=== PATIENT | male | born 1990 | race Caucasian/White ===

== ENCOUNTER 2017-11-19 05:38 | Emergency (ER) | payer MEDICAID ==
[2017-11-19 06:03] VITALS: BP 170/93
--- NOTE | 2017-11-19 06:28 | EDM.PDOC ---
ED HPI GENERAL MEDICAL PROBLEM - General Chief Complaint: ENT Problem Stated Complaint: FACE IS SWOLLEN Time Seen by Provider: 11/19/17 06:23 Source of Information: Reports: Patient History Limitations: Reports: No Limitations - History of Present Illness INITIAL COMMENTS - FREE TEXT/NARRATIVE: Noticed swelling face this morning. No associated pain. No dental care. left side of face Pain Score (Numeric/FACES): 3 - Related Data Allergies Allergy/AdvReac Type Severity Reaction Status Date / Time amoxicillin [Amoxicillin] Allergy Intermediate Facial Verified 11/19/17 05:45 Swelling Home Meds: Home Meds Ibuprofen [Advil] 600 mg PO Q4H PRN 12/14/12 [History] diphenhydrAMINE HCl [Benadryl Allergy] 50 mg PO ASDIRECTED PRN 11/19/17 [History ] Past Medical History - Past Health History Medical/Surgical History: Denies Medical/Surgical History Cardiovascular History: Reports: Hypertension Genitourinary History: Reports: Renal Calculus Musculoskeletal History: Reports: Fracture - Infectious Disease History Infectious Disease History: Reports: Chicken Pox Social & Family History - Tobacco Use Smoking Status *Q: Current Every Day Smoker Years of Tobacco use: 14 Packs/Tins Daily: 2 - Caffeine Use Caffeine Use: Reports: Energy Drinks - Recreational Drug Use Recreational Drug Use: No ED ROS ENT - Review of Systems Review Of Systems: ROS reveals no pertinent complaints other than HPI. ED EXAM, ENT - Physical Exam Exam: See Below Exam Limited By: No Limitations General Appearance: Alert, WD/WN Nose: Other (mild facial swelling to area of nasolabial fold just to left of nose.) Mouth/Throat: Other (severely carious teeth. some thickening above left upper canine. Early abscess not ready to drain.) Course - Vital Signs Last Recorded V/S: Last Vital Signs Temp 36.3 C 11/19/17 06:03 Pulse 98 11/19/17 06:03 Resp 16 11/19/17 06:03 BP 170/93 H 11/19/17 06:03 Pulse Ox 96 11/19/17 06:03 Departure - Departure Time of Disposition: 06:28 Disposition: Home, Self-Care 01 Condition: Fair Clinical Impression: Dental abscess - Discharge Information Referrals: PCP,None [Primary Care Provider] - Additional Instructions: Take clindamycin 150 mg, 2 tabs or caps 3 times daily. See dentist soon. If a good abscess cavity forms you could also see a surgeon or even return to the ER.
== END 2017-11-19 06:35 | disposition home or self-care (01) ==
LOC: JP.ED 05:38
DX: K04.7 Periapical abscess without sinus (principal); K02.9 Dental caries, unspecified; F17.210 Nicotine dependence, cigarettes, uncomplicated; Z88.1 Allergy status to other antibiotic agents
CPT/HCPCS: 99283

== ENCOUNTER 2018-11-02 01:06 | Emergency (ER) | payer MEDICAID ==
[2018-11-02 01:19] VITALS: BP 134/57
--- NOTE | 2018-11-02 01:32 | EDM.PDOC ---
ED HPI GENERAL MEDICAL PROBLEM - General Chief Complaint: Lower Extremity Injury/Pain Stated Complaint: HIT LEFT FOOT WITH HAMMER Time Seen by Provider: 11/02/18 01:10 Source of Information: Reports: Patient History Limitations: Reports: No Limitations - History of Present Illness INITIAL COMMENTS - FREE TEXT/NARRATIVE: 28-year-old male with a left foot injury. He accidentally struck his foot with a large sledge hammer about 2 hours ago. He has pain and swelling on the top of the foot. No other injury. Onset: Sudden Duration: Hour(s): (2 hours ago) Location: Reports: Lower Extremity, Left Associated Symptoms: Reports: No Other Symptoms left foot Pain Score (Numeric/FACES): 5 - Related Data Allergies Allergy/AdvReac Type Severity Reaction Status Date / Time amoxicillin [Amoxicillin] Allergy Intermediate Facial Verified 11/02/18 01:18 Swelling Home Meds: Home Meds NK [No Known Home Meds] 10/20/18 [History] Past Medical History - Past Health History Medical/Surgical History: Denies Medical/Surgical History Cardiovascular History: Reports: Hypertension Genitourinary History: Reports: Renal Calculus Musculoskeletal History: Reports: Fracture - Infectious Disease History Infectious Disease History: Reports: Chicken Pox Social & Family History - Tobacco Use Smoking Status *Q: Current Every Day Smoker Years of Tobacco use: 15 Packs/Tins Daily: 1.5 - Caffeine Use Caffeine Use: Reports: Energy Drinks - Recreational Drug Use Recreational Drug Use: No Review of Systems - Review of Systems Review Of Systems: See Below Constitutional: Denies: Fever Respiratory: Reports: No Symptoms Cardiovascular: Reports: No Symptoms GI/Abdominal: Reports: No Symptoms Skin: Denies: Bruising Neurological: Denies: Paresthesia ED EXAM, GENERAL - Physical Exam Exam: See Below Exam Limited By: No Limitations General Appearance: Alert, No Apparent Distress (Patient is uncomfortable but not distressed) Respiratory/Chest: No Respiratory Distress Extremities: Other (Exam is otherwise limited to the lower extremities. The left foot has swelling on the top of the foot with exquisite tenderness to palpation. No crepitus or significant deformity. No ankle tenderness.) Course - Vital Signs Last Recorded V/S: Last Vital Signs Temp 98.4 F 11/02/18 01:20 Pulse 99 11/02/18 01:20 Resp 20 11/02/18 01:20 BP 134/57 L 11/02/18 01:20 Pulse Ox 97 11/02/18 01:20 - Re-Assessments/Exams Free Text/Narrative Re-Assessment/Exam: 11/02/18 01:30 A left foot x-ray was obtained which was negative for fracture. A three-inch Akhil wrap was applied to the foot and the patient was encouraged to increase activity as tolerated. Ice and elevation will help the first 12-24 hours, and ibuprofen would be helpful as well. Departure - Departure Time of Disposition: 01:36 Disposition: Home, Self-Care 01 Condition: Good Clinical Impression: Contusion of left foot Qualifiers: Encounter type: initial encounter Qualified Code(s): S90.32XA - Contusion of left foot, initial encounter - Discharge Information Instructions: Foot Contusion, [id number] Referrals: PCP,None [Primary Care Provider] - Forms: ED Department Discharge Care Plan Goals: Akhil wrap to reduce swelling, elevation and ice will help as well. Ibuprofen on a regular basis next several days will be beneficial and increase activity as tolerated. Recheck in 2-3 days if not improving satisfactorily.
--- NOTE | 2018-11-02 01:36 | CRLCR ---
INDICATION: Hit foot with hammer. COMPARISON: None. FINDINGS/IMPRESSION: Left foot, 3 views. Soft tissue swelling over the dorsal aspect of the midfoot. Tiny, rounded, 4 x 2 millimeter ossified density along the medial aspect of the 5th metatarsal head consistent with an accessory ossicle or small chip fracture, favored to be chronic. No other evidence for fracture. No dislocation. Dictated by Matteo Li MD @ 11/02/2018 1:34:05 AM Dictated by: Matteo Li MD @ 11/02/2018 01:34:29 (Electronically Signed)
== END 2018-11-02 01:36 | disposition home or self-care (01) ==
LOC: JP.ED 01:06
DX: S90.32XA Contusion of left foot, initial encounter (principal); I10 Essential (primary) hypertension; F17.210 Nicotine dependence, cigarettes, uncomplicated; Z88.1 Allergy status to other antibiotic agents; W22.8XXA Striking against or struck by other objects, initial encounter
CPT/HCPCS: 73630-LT; 99283-25